=== PATIENT | female | born 1985 | race Two or more races ===

== ENCOUNTER 2017-01-08 21:09 | Emergency (ER) | payer OTHER ==
[~2017-01-08] VITALS: Ht 172.7 cm; Wt 76.7 kg
[2017-01-08 21:13] VITALS: BP 117/68
--- NOTE | 2017-01-08 21:20 | NUR ---
PT SEEN WALKING OUT OF ROOM WITH S/O AND OUT OF ER. MD NOTIFIED.
== END 2017-01-08 21:22 | disposition left against medical advice (07) ==
LOC: ER 21:16
DX: Z53.21 Procedure and treatment not carried out due to patient leaving prior to being seen by health care provider (principal)
CPT/HCPCS: A4606; Z7610